=== PATIENT | male | born 1995 | race Caucasian/White ===

== ENCOUNTER 2021-05-22 11:10 | Emergency (ER) | payer MEDICAID ==
--- NOTE | 2021-05-22 11:56 | EDM.PDOC ---
ED HPI GENERAL MEDICAL PROBLEM - General Chief Complaint: Chest Pain Stated Complaint: CHEST PAIN SENT BY [facility] Time Seen by Provider: 05/22/21 11:18 Source of Information: Reports: Patient History Limitations: Reports: No Limitations - History of Present Illness INITIAL COMMENTS - FREE TEXT/NARRATIVE: 25-year-old male presents the emergency department with complaints of chest pain that started yesterday morning while he was cooking eggs. Patient states that he was cooking eggs when he noticed that he had pain noted to his right pectoralis area with extension and flexion of his right arm. He states that he has noticed that when he grabs or lifts things he has increased chest pain to the right side of his chest. He states pain is also worse when taking a deep breath. He denies any recent fever, cough, chills, nausea, vomiting or diarrhea. He denies any significant past medical history and he does not take any prescription medications. Patient also states that he noted blood in his stool with his last bowel movement. He states there was some blood noted on the stool and then some on the toilet paper when he wiped however he states he was straining quite a bit to have a bowel movement. He is denied any dizziness or palpitations or weakness associated with this. - Related Data Allergies Allergy/AdvReac Type Severity Reaction Status Date / Time Sulfa (Sulfonamide Allergy Mild Hives Verified 05/22/21 11:34 Antibiotics) Home Meds: Home Meds . 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" Other Psychiatric History: "fragile x syndrome" Endocrine/Metabolic History: Reports: Obesity/BMI 30+ - Infectious Disease History Infectious Disease History: Reports: Novel Coronavirus - Past Surgical History HEENT Surgical History: Reports: Adenoidectomy Other Musculoskeletal Surgeries/Procedures:: "hole that opened up on tailbone" was repaired Social & Family History - Tobacco Use Tobacco Use Status *Q: Never Tobacco User Second Hand Smoke Exposure: No - Caffeine Use Caffeine Use: Reports: Coffee, Soda - Recreational Drug Use Recreational Drug Use: Yes Drug Use in Last 12 Months: No Recreational Drug Type: Reports: Marijuana/Hashish Recreational Drug Use Frequency: Not Used In Over 6 Months ED ROS GENERAL - Review of Systems Review Of Systems: Comprehensive ROS is negative, except as noted in HPI. ED EXAM, GENERAL - Physical Exam Exam: See Below Exam Limited By: No Limitations General Appearance: Alert, WD/WN, No Apparent Distress Ears: Normal External Exam, Hearing Grossly Normal Nose: Normal Inspection Throat/Mouth: Normal Inspection, Normal Lips, Normal Voice, No Airway Compromise Head: Atraumatic Neck: Normal Inspection, Supple Respiratory/Chest: No Respiratory Distress, Lungs Clear, Normal Breath Sounds, No Accessory Muscle Use. No: Chest Non-Tender (Tender with deep breathing and palpation noted to right side of chest wall) Cardiovascular: Normal Peripheral Pulses, Regular Rate, Rhythm, No Edema, No Murmur Peripheral Pulses: 2+: Radial (L), Radial (R) GI/Abdominal: Normal Bowel Sounds, Soft, Non-Tender, No Distention (Male) Exam: Deferred Rectal (Males) Exam: No: Hemorrhoids Back Exam: Normal Inspection, Full Range of Motion Extremities: Normal Inspection, Normal Range of Motion Neurological: Alert, Oriented, Normal Cognition Psychiatric: Normal Affect, Normal Mood Skin Exam: Warm, Dry, Intact, Normal Color, No Rash Lymphatic: No Adenopathy #1 Interpretation EKG Date: 05/22/21 Time: 12:06 Rhythm: NSR Rate (Beats/Min): 68 Cougar: Normal P-Wave: Present QRS: Normal ST-T: Normal QT: Normal Comparison: NA - No Prior EKG EKG Interpretation Comments: Per Dr. Ruelas interpretation: Sinus rhythm @ 68; left axis deviation Course - Vital Signs Text/Narrative:: Upon assessment, the patient is awake alert and oriented sitting in the bed. He does not appear to be in any kind of distress. He denies any chest pain or discomfort while resting in the bed. Does admit to having increased chest pain to the right side of his chest when taking a deep breath. Pain is also worse with palpation to the right side of his chest. Rectal exam was completed and there is no external hemorrhoids appreciated. Will not do any further work-up regarding this as I suspect patient likely has some internal hemorrhoids that were irritated with straining with a bowel movement. I have ordered an EKG, portable view of the chest and labs to include a CBC, CMP, D-dimer, magnesium, and troponin. Last Recorded V/S: Last Vital Signs Temp 97 F 05/22/21 11:21 Pulse 84 05/22/21 11:21 Resp 16 06/28/21 11:21 BP 118/77 05/22/21 11:21 Pulse Ox 100 05/22/21 11:21 - Orders/Labs/Meds Orders: Active Orders 24 hr Category Date Time Status EKG Documentation Completion [RC] STAT Care 05/22/21 11:49 Active Chest 1V Frontal [CR] Stat Exams 05/22/21 11:49 Taken Labs: Laboratory Tests 05/22/21 05/22/21 05/22/21 Range/Units 12:10 12:10 12:10 WBC 5.13 (4.23-9.07) K/mm3 RBC 5.33 (4.63-6.08) M/mm3 Hgb 15.4 (13.7-17.5) gm/dl Hct 45.6 (40.1-51.0) % MCV 85.6 (79.0-92.2) fl MCH 28.9 (25.7-32.2) pg MCHC 33.8 (32.2-35.5) g/dl RDW Std Deviation 41.4 (35.1-43.9) fL Plt Count 191 (163-337) K/mm3 MPV 11.3 (9.4-12.3) fl Neut % (Auto) 52.0 (34.0-67.9) % Lymph % (Auto) 39.0 (21.8-53.1) % Meeker % (Auto) 7.6 (5.3-12.2) % Eos % (Auto) 0.8 (0.8-7.0) Baso % (Auto) 0.6 (0.1-1.2) % Neut # (Auto) 2.67 (1.78-5.38) K/mm3 Lymph # (Auto) 2.00 (1.32-3.57) K/mm3 Meeker # (Auto) 0.39 (0.30-0.82) K/mm3 Eos # (Auto) 0.04 (0.04-0.54) K/mm3 Baso # (Auto) 0.03 (0.01-0.08) K/mm3 D-Dimer, Quantitative < 0.19 L (0.19-0.50) mg/L Sodium 143 (136-145) mEq/L Potassium 4.4 (3.5-5.1) mEq/L Chloride 105 (98-107) mEq/L Carbon Dioxide 31 (21-32) mEq/L Anion Gap 11.4 (5-15) BUN 11 (7-18) mg/dL Creatinine 1.1 (0.7-1.3) mg/dL Est Cr Clr Drug Dosing 81.90 mL/min Estimated GFR (MDRD) > 60 (>60) mL/min BUN/Creatinine Ratio 10.0 L (14-18) Glucose 94 (70-99) mg/dL Calcium 9.4 (8.5-10.1) mg/dL Magnesium 2.1 (1.8-2.4) mg/dL Total Bilirubin 0.6 (0.2-1.0) mg/dL AST 16 (15-37) U/L ALT 11 L (16-63) U/L Alkaline Phosphatase 99 (46-116) U/L Troponin I < 0.017 (0.00-0.056) ng/mL Total Protein 7.8 (6.4-8.2) g/dl Albumin 3.9 (3.4-5.0) g/dl Globulin 3.9 gm/dL Albumin/Globulin Ratio 1.0 (1-2) - Re-Assessments/Exams Free Text/Narrative Re-Assessment/Exam: 05/22/21 13:20 Hematology is unremarkable, hemoglobin 15.4, hematocrit 45.6, Coagulation reveals a D-dimer of less than 0.19 Chemistry is essentially unremarkable, troponin less than 0.017 05/22/21 13:20 Nothing acute is appreciated on portable view of the chest: Radiologist report is pending Patient will be discharged to home. Right chest wall pain is likely musculoskeletal in origin. Will recommend that he take ibuprofen 600 mg every 6-8 hours as needed for the discomfort and follow-up with your primary care provider in about a week if he is not better. Departure - Departure Time of Disposition: 13:21 Disposition: Home, Self-Care 01 Condition: Good Clinical Impression: Atypical chest pain Instructions: Chest Wall Pain, [id number], Nonspecific Chest Pain, Adult, [id number] Referrals: PCP,None [Primary Care Provider] - Forms: ED Department Discharge Additional Instructions: You were seen in the emergency department today with complaints of chest pain to the right side of your chest. Full cardiac work-up was completed which included an EKG, chest x-ray and lab studies. The results of these tests were all unremarkable. The cause of your chest pain is likely musculoskeletal in origin. Recommend that you take ibuprofen 600 mg every 6-8 hours as needed for the discomfort this will decrease any pain or inflammation associated with chest wall discomfort. Suspect that the source of your rectal bleeding is likely due to an internal hemorrhoid. I would just keep an eye on this as your hemoglobin level was stable today. Recommend that you follow-up with a primary care provider in about a week if this does not resolve. Should your condition worsen or change, do not hesitate returning to the emergency department. Sepsis Event Note (ED) - Evaluation Sepsis Screening Result: No Definite Risk - Focused Exam Vital Signs: Vital Signs Temp Pulse Resp BP Pulse Ox 05/22/21 11:21 97 F 84 16 118/77 100 - My Orders Last 24 Hours: My Active Orders 05/22/21 11:49 EKG Documentation Completion [RC] STAT Chest 1V Frontal [CR] Stat - Assessment/Plan Last 24 Hours: My Active Orders 05/22/21 11:49 EKG Documentation Completion [RC] STAT Chest 1V Frontal [CR] Stat
--- NOTE | 2021-05-22 14:22 | CR ---
Chest: Portable view of the chest was obtained. Comparison: No prior chest imaging is unavailable. Heart size and mediastinum are within normal limits. Lungs are clear with no acute parenchymal change. No acute osseous abnormality is appreciated. Impression: 1. Nothing acute is seen on portable chest x-ray. Diagnostic code #1
== END 2021-05-22 13:36 | disposition home or self-care (01) ==
LOC: JD.ED 11:10
DX: R07.89 Other chest pain (principal); Z88.2 Allergy status to sulfonamides
CPT/HCPCS: 36415; 71045; 71045-26; 80053; 83735; 84484; 85025; 85379; 93005; 93010; 99283; 99285-25